=== PATIENT | male | born 1940 | race Caucasian/White ===

== ENCOUNTER 2017-12-21 17:21 | Emergency (ER) | payer OTHER ==
[~2017-12-21] VITALS: Ht 172.7 cm; Wt 67.9 kg
[~2017-12-21 17:21] MED LIST: ADULT LOW DOSE81 M1 PO; ANTACID; ASPIRIN81 M2 PO; ENDOCET 5-3251 EACH PO; FINASTERIDE5 M2 PO; FINASTERIDE5 MG PO; FLOMAX0.4 MG PO; HYDROCHLOROTHIA25 MG PO; HYDROCODON-ACE1 EAC7 PO; IMDUR60 MG PO; ISOSORBIDE MONO60 MG; ISOSORBIDE MONO60 MG PO; LIPITOR10 MG PO; LISINOPRIL40 MG PO; MICROZIDE12.5 M1 PO; NIFEDIPINE ER90 MG PO; NITROGLYCERIN0.4 MG SL; NORVASC10 MG PO; OMEPRAZOLE20 M2 PO; PLAVIX75 MG; PRILOSEC20 MG PO; SIMVASTATIN40 MG PO; ULTRACET1 TABLET PO; UROXATRAL10 MG; ZANTAC75 MG; ZOCOR40 MG
[2017-12-21 19:14] VITALS: BP 180/77
== END 2017-12-21 19:16 | disposition home or self-care (01) ==
LOC: EME 17:21
DX: S46.212A Strain of muscle, fascia and tendon of other parts of biceps, left arm, initial encounter (principal); X50.0XXA Overexertion from strenuous movement or load, initial encounter
CPT/HCPCS: 73060; 73080; 99281; 99283